=== PATIENT | male | born 1980 | race Caucasian/White ===

== ENCOUNTER 2018-07-14 19:07 | Emergency (ER) | payer MEDICAID ==
[~2018-07-14] VITALS: Ht 165.1 cm; Wt 61.0 kg
[2018-07-14] MEDS ORDERED: TETanus/Pertussis (Acell)/Diphther VAC/PF (Tdap-Adult) 0.5ml syringe IM ONE (19:40)
[2018-07-14] MEDS ORDERED: LIDOcaine 1.5% w/epinephrine 1:200,000 5ml ampul IJ ONE (19:40)
[2018-07-14] MEDS ORDERED: LIDOcaine 1% w/epiNEPHrine 1:200,000 30ml vial IJ ONE (19:50)
[2018-07-14] MEDS ORDERED: sulfamethoxazole/trimethoprim DS (800/160mg) tablet PO ONE (20:20)
[2018-07-14] MEDS ORDERED: SULF1TAB49 PO (20:21)
[2018-07-14] MEDS ORDERED: CEPH-572 PO (20:21)
[2018-07-14 20:34] VITALS: BP 138/72
== END 2018-07-14 20:37 | disposition home or self-care (01) ==
LOC: ER 19:08
DX: L02.414 Cutaneous abscess of left upper limb (principal); F19.10 Other psychoactive substance abuse, uncomplicated; F15.90 Other stimulant use, unspecified, uncomplicated; Z56.0 Unemployment, unspecified
CPT/HCPCS: 10060; 99283; J3490

== ENCOUNTER 2018-07-16 17:25 | Inpatient (IN) | payer MEDICAID ==
[~2018-07-16] VITALS: Ht 165.1 cm; Wt 68.0 kg
[~2018-07-16 17:25] MED LIST: CEPH-572 PO; SULF1TAB49 PO
[2018-07-16] MEDS ORDERED: piperacillin/tazo 3.375gm/50ml 50 ML IV ONE (18:20)
[2018-07-16 19:00] LABS: BASOPHILS # (AUTO) 0.1 X10'3 (0-0.2); BASOPHILS % (AUTO) 0.6 % (0-1); EOSINOPHILS # (AUTO) 0.3 X10'3 (0-0.9); EOSINOPHILS % (AUTO) 3.6 % (0-6); HEMATOCRIT 39.2 % (42.0-52.0); HEMOGLOBIN 13.1 g/dl (14.0-17.9); LYMPHOCYTES # (AUTO) 1.9 X10'3 (1.1-4.8); LYMPHOCYTES % (AUTO) 21.5 % (21-51); MEAN CORPUSCULAR HGB CONC 33.6 % (33.0-36.5); MEAN CORPUSCULAR VOLUME 83.5 FL (78-98); MEAN PLATELET VOLUME 7.8 FL (7.4-10.4); MONOCYTES # (AUTO) 0.9 X10'3 (0-0.9); MONOCYTES % (AUTO) 10.4 % (2-12); NEUTROPHILS # (AUTO) 5.6 X10'3 (1.8-7.7); NEUTROPHILS % (AUTO) 63.9 % (42-75); PLATELET COUNT 286 X10'3 (140-440); RED BLOOD COUNT 4.69 X10'6 (4.70-6.10); RED CELL DISTRIBUTION WIDTH 14.3 % (11.5-14.5); WHITE BLOOD COUNT 8.8 X10'3 (4.5-11.0)
[2018-07-16 19:14] LABS: ALANINE AMINOTRANSFERASE 18 U/L (12-78); ALBUMIN 3.4 G/DL (3.4-5.0); ALBUMIN/GLOBULIN RATIO 0.8 (1.1-1.5); ALKALINE PHOSPHATASE 102 IU/L (46-116); ANION GAP 5 (8-16); ASPARTATE AMINO TRANSFERASE 19 U/L (10-37); BILIRUBIN,TOTAL 0.3 MG/DL (0.1-1.0); BLOOD UREA NITROGEN 16 MG/DL (7-18); BUN/CREATININE RATIO 15.2 (5.4-32.0); CALCIUM 9.2 MG/DL (8.5-10.1); CHLORIDE 102 MMOL/L (99-107); CREATININE 1.05 MG/DL (0.60-1.10); GLUCOSE 73 MG/DL (70-104); POTASSIUM 4.9 MMOL/L (3.5-5.1); SODIUM 140 MMOL/L (135-145); TOTAL CARBON DIOXIDE 33.5 MMOL/L (24-32); TOTAL PROTEIN 7.5 G/DL (6.4-8.2); eGFR 79 ML/MIN
[2018-07-16] MEDS ORDERED: morphine 4 MG/ML inj SYRINge IV ONE (19:35)
[2018-07-16] MEDS ORDERED: magnesium hydroxide 30ml (MOM) UD suspension PO PRN (20:00)
[2018-07-16] MEDS ORDERED: mag hydrox/Alum hydrox/simeth 30ml oral suspension PO PRN (20:00)
[2018-07-16] MEDS ORDERED: acetaminophen 325mg tablet PO PRN (20:00)
[2018-07-16] MEDS ORDERED: ondansetron/PF 4mg/2ml inj IV PRN (20:00)
[2018-07-16] MEDS ORDERED: buprenorphine/naloxone 2-0.5mg sublingual tablet SL ONE (20:00)
[2018-07-16] MEDS: vancomycin/NS 1 GM ADD-VANTAGE 250 ML IV SCH (20:29)
[2018-07-16] MEDS: normal saline 1000ml 1,000 ML IV SCH (20:29)
[2018-07-16 21:50] VITALS: BP 112/65
[2018-07-17] VITALS: BP 100/54
[2018-07-17] MEDS: normal saline 1000ml 1,000 ML IV SCH ×2 (05:40→20:47)
[2018-07-17 06:08] LABS: BASOPHILS % (AUTO) 0.6 % (0-1); EOSINOPHILS # (AUTO) 0.2 X10'3 (0-0.9); EOSINOPHILS % (AUTO) 2.8 % (0-6); HEMATOCRIT 36.8 % (42.0-52.0); HEMOGLOBIN 12.3 g/dl (14.0-17.9); LYMPHOCYTES % (AUTO) 25.8 % (21-51); MEAN CORPUSCULAR HEMOGLOBIN 27.9 PG (27.0-31.0); MEAN CORPUSCULAR HGB CONC 33.4 % (33.0-36.5); MEAN CORPUSCULAR VOLUME 83.7 FL (78-98); MEAN PLATELET VOLUME 7.7 FL (7.4-10.4); MONOCYTES # (AUTO) 0.8 X10'3 (0-0.9); MONOCYTES % (AUTO) 9.8 % (2-12); NEUTROPHILS # (AUTO) 4.7 X10'3 (1.8-7.7); PLATELET COUNT 254 X10'3 (140-440); RED CELL DISTRIBUTION WIDTH 14.4 % (11.5-14.5); WHITE BLOOD COUNT 7.6 X10'3 (4.5-11.0)
[2018-07-17 06:28] LABS: ALBUMIN 2.7 G/DL (3.4-5.0); ANION GAP 5 (8-16); BLOOD UREA NITROGEN 18 MG/DL (7-18); BUN/CREATININE RATIO 19.4 (5.4-32.0); CALCIUM 8.8 MG/DL (8.5-10.1); CHLORIDE 105 MMOL/L (99-107); CREATININE 0.93 MG/DL (0.60-1.10); GLUCOSE 91 MG/DL (70-104); POTASSIUM 4.7 MMOL/L (3.5-5.1); SODIUM 141 MMOL/L (135-145); TOTAL CARBON DIOXIDE 31.2 MMOL/L (24-32); eGFR > 90 ML/MIN
[2018-07-17 06:53] VITALS: BP 102/63
[2018-07-17] MEDS: vancomycin/NS 1 GM ADD-VANTAGE 250 ML IV SCH ×2 (07:40→15:51)
[2018-07-17] MEDS: buprenorphine/naloxone 2-0.5mg sublingual tablet SL SCH ×2 (07:40→15:50)
[2018-07-17] MEDS: CefTRIAXone/D5W-Rocephin 1gm 50 ML IV SCH (08:00)
[2018-07-17] MEDS ORDERED: NO HOME MEDS (10:37)
[2018-07-17 11:00] VITALS: BP 103/56
[2018-07-17 19:30] VITALS: BP 109/66
[2018-07-18] VITALS: BP 122/76
[2018-07-18] MEDS: buprenorphine/naloxone 2-0.5mg sublingual tablet SL SCH ×4 (00:29→23:56)
[2018-07-18] MEDS: vancomycin/NS 1 GM ADD-VANTAGE 250 ML IV SCH ×4 (00:29→23:52)
[2018-07-18] MEDS: normal saline 1000ml 1,000 ML IV SCH ×4 (01:58→23:52)
[2018-07-18] MEDS ORDERED: VANCOMYCIN LEVEL IV ONE (07:30)
[2018-07-18] MEDS: CefTRIAXone/D5W-Rocephin 1gm 50 ML IV SCH (07:54)
[2018-07-18] MEDS: lactobacillus rhamnosus 10,000 MMU CELLS/CAPSULE PO SCH ×2 (07:57→19:17)
[2018-07-18 08:00] VITALS: BP 108/69
[2018-07-18 09:06] LABS: ALBUMIN 2.7 G/DL (3.4-5.0); ANION GAP 6 (8-16); BLOOD UREA NITROGEN 16 MG/DL (7-18); BUN/CREATININE RATIO 18.4 (5.4-32.0); CALCIUM 8.8 MG/DL (8.5-10.1); CHLORIDE 104 MMOL/L (99-107); CREATININE 0.87 MG/DL (0.60-1.10); GLUCOSE 115 MG/DL (70-104); POTASSIUM 4.3 MMOL/L (3.5-5.1); SODIUM 141 MMOL/L (135-145); TOTAL CARBON DIOXIDE 31.1 MMOL/L (24-32); eGFR > 90 ML/MIN
[2018-07-18 09:07] LABS: BASOPHILS % (AUTO) 0.6 % (0-1); EOSINOPHILS # (AUTO) 0.2 X10'3 (0-0.9); EOSINOPHILS % (AUTO) 3.6 % (0-6); HEMATOCRIT 37.5 % (42.0-52.0); HEMOGLOBIN 12.4 g/dl (14.0-17.9); LYMPHOCYTES % (AUTO) 36.2 % (21-51); MEAN CORPUSCULAR HEMOGLOBIN 27.9 PG (27.0-31.0); MEAN CORPUSCULAR HGB CONC 33.2 % (33.0-36.5); MEAN PLATELET VOLUME 7.8 FL (7.4-10.4); MONOCYTES # (AUTO) 0.6 X10'3 (0-0.9); MONOCYTES % (AUTO) 11.6 % (2-12); NEUTROPHILS # (AUTO) 2.7 X10'3 (1.8-7.7); PLATELET COUNT 273 X10'3 (140-440); RED BLOOD COUNT 4.46 X10'6 (4.70-6.10); RED CELL DISTRIBUTION WIDTH 14.1 % (11.5-14.5); WHITE BLOOD COUNT 5.6 X10'3 (4.5-11.0)
[2018-07-18 09:27] LABS: VANCOMYCIN,TROUGH 15.7 UG/ML (6.0-14.0)
[2018-07-18 12:15] VITALS: BP 109/68
[2018-07-18] MEDS ORDERED: iohexol 300mg/ml 100ml inj. ONE (13:57)
[2018-07-18 20:00] VITALS: BP 110/53
[2018-07-18] MEDS: nicotine 21mg patch - 24 hr TD SCH (23:46)
[2018-07-19] VITALS: BP 111/65
[2018-07-19 06:59] VITALS: BP 107/55
[2018-07-19] MEDS: nicotine 21mg patch - 24 hr TD SCH (08:00)
[2018-07-19] MEDS: CefTRIAXone/D5W-Rocephin 1gm 50 ML IV SCH (08:13)
[2018-07-19] MEDS: buprenorphine/naloxone 2-0.5mg sublingual tablet SL SCH ×2 (08:17→16:21)
[2018-07-19] MEDS: lactobacillus rhamnosus 10,000 MMU CELLS/CAPSULE PO SCH ×2 (08:17→19:58)
[2018-07-19] MEDS: vancomycin/NS 1 GM ADD-VANTAGE 250 ML IV SCH ×2 (09:29→16:21)
[2018-07-19 10:55] LABS: ANION GAP 2 (8-16); BLOOD UREA NITROGEN 17 MG/DL (7-18); BUN/CREATININE RATIO 22.4 (5.4-32.0); CALCIUM 9.5 MG/DL (8.5-10.1); CHLORIDE 102 MMOL/L (99-107); CREATININE 0.76 MG/DL (0.60-1.10); GLUCOSE 94 MG/DL (70-104); POTASSIUM 4.8 MMOL/L (3.5-5.1); SODIUM 138 MMOL/L (135-145); TOTAL CARBON DIOXIDE 33.9 MMOL/L (24-32); eGFR > 90 ML/MIN
[2018-07-19 10:57] LABS: BASOPHILS % (AUTO) 0.4 % (0-1); EOSINOPHILS # (AUTO) 0.2 X10'3 (0-0.9); EOSINOPHILS % (AUTO) 2.6 % (0-6); HEMOGLOBIN 13.1 g/dl (14.0-17.9); LYMPHOCYTES # (AUTO) 1.8 X10'3 (1.1-4.8); LYMPHOCYTES % (AUTO) 24.3 % (21-51); MEAN CORPUSCULAR HEMOGLOBIN 27.9 PG (27.0-31.0); MEAN CORPUSCULAR HGB CONC 33.5 % (33.0-36.5); MEAN CORPUSCULAR VOLUME 83.2 FL (78-98); MEAN PLATELET VOLUME 7.4 FL (7.4-10.4); MONOCYTES # (AUTO) 0.7 X10'3 (0-0.9); MONOCYTES % (AUTO) 8.9 % (2-12); NEUTROPHILS # (AUTO) 4.8 X10'3 (1.8-7.7); NEUTROPHILS % (AUTO) 63.8 % (42-75); PLATELET COUNT 324 X10'3 (140-440); RED BLOOD COUNT 4.69 X10'6 (4.70-6.10); RED CELL DISTRIBUTION WIDTH 14.3 % (11.5-14.5); WHITE BLOOD COUNT 7.4 X10'3 (4.5-11.0)
[2018-07-19 12:00] VITALS: BP 102/80
[2018-07-19] MEDS: normal saline 1000ml 1,000 ML IV SCH (14:50)
[2018-07-19 20:00] VITALS: BP 108/71
[2018-07-20] VITALS: BP 108/71
[2018-07-20] MEDS: buprenorphine/naloxone 2-0.5mg sublingual tablet SL SCH ×2 (01:16→08:25)
[2018-07-20] MEDS: normal saline 1000ml 1,000 ML IV SCH ×2 (01:17→13:58)
[2018-07-20] MEDS: vancomycin/NS 1 GM ADD-VANTAGE 250 ML IV SCH ×2 (01:17→08:24)
[2018-07-20 05:16] LABS: BASOPHILS % (AUTO) 0.7 % (0-1); EOSINOPHILS # (AUTO) 0.2 X10'3 (0-0.9); EOSINOPHILS % (AUTO) 3.7 % (0-6); HEMATOCRIT 38.9 % (42.0-52.0); HEMOGLOBIN 12.9 g/dl (14.0-17.9); LYMPHOCYTES # (AUTO) 1.9 X10'3 (1.1-4.8); LYMPHOCYTES % (AUTO) 38.7 % (21-51); MEAN CORPUSCULAR HEMOGLOBIN 27.7 PG (27.0-31.0); MEAN CORPUSCULAR HGB CONC 33.1 % (33.0-36.5); MEAN CORPUSCULAR VOLUME 83.7 FL (78-98); MEAN PLATELET VOLUME 7.7 FL (7.4-10.4); MONOCYTES # (AUTO) 0.4 X10'3 (0-0.9); MONOCYTES % (AUTO) 8.4 % (2-12); NEUTROPHILS # (AUTO) 2.4 X10'3 (1.8-7.7); NEUTROPHILS % (AUTO) 48.5 % (42-75); PLATELET COUNT 309 X10'3 (140-440); RED BLOOD COUNT 4.65 X10'6 (4.70-6.10); RED CELL DISTRIBUTION WIDTH 13.9 % (11.5-14.5)
[2018-07-20 05:25] LABS: ALBUMIN 2.9 G/DL (3.4-5.0); ANION GAP 6 (8-16); BLOOD UREA NITROGEN 18 MG/DL (7-18); BUN/CREATININE RATIO 21.4 (5.4-32.0); CHLORIDE 104 MMOL/L (99-107); CREATININE 0.84 MG/DL (0.60-1.10); GLUCOSE 88 MG/DL (70-104); POTASSIUM 4.6 MMOL/L (3.5-5.1); SODIUM 140 MMOL/L (135-145); eGFR > 90 ML/MIN
[2018-07-20 08:00] VITALS: BP 105/70
[2018-07-20] MEDS: nicotine 21mg patch - 24 hr TD SCH (08:00)
[2018-07-20] MEDS: CefTRIAXone/D5W-Rocephin 1gm 50 ML IV SCH (08:25)
[2018-07-20] MEDS: lactobacillus rhamnosus 10,000 MMU CELLS/CAPSULE PO SCH (08:25)
[2018-07-20] MEDS ORDERED: LINE600T36 CORPAK (08:54)
[2018-07-20 10:54] VITALS: BP 107/72
[2018-07-20] MEDS ORDERED: LINE600T36 PO (12:58)
== END 2018-07-20 14:00 | disposition home or self-care (01) | DRG 383 ==
LOC: ER 17:25 → ED HOLD 19:58 → SUR 3N 21:20
PROVIDERS: ADMIT Hospitalist; ATTEND Internal Medicine
PROC: BP2K1ZZ Computerized Tomography (CT Scan) of Left Forearm using Low Osmolar Contrast (ICD-10-PCS; principal; 2018-07-18)
DX: L03.114 Cellulitis of left upper limb (principal); N17.9 Acute kidney failure, unspecified; F11.10 Opioid abuse, uncomplicated; G89.4 Chronic pain syndrome; B95.62 Methicillin resistant Staphylococcus aureus infection as the cause of diseases classified elsewhere; I80.8 Phlebitis and thrombophlebitis of other sites; F15.90 Other stimulant use, unspecified, uncomplicated; L02.414 Cutaneous abscess of left upper limb; Z79.899 Other long term (current) drug therapy
CPT/HCPCS: 36415; 71045; 73090; 73201; 80048; 80053; 80202; 84145; 85025; 87040; 87070; 87077; 87186; 96365; 96375; 99285; G0378; J0696; J2270; J2543; J3370; J7030; Q9967

== ENCOUNTER 2018-09-26 15:34 | Emergency (ER) | payer MEDICAID ==
[~2018-09-26 15:34] MED LIST changes: -CEPH-572 PO; +LINE600T36 PO; +NO HOME MEDS; -SULF1TAB49 PO
--- NOTE | 2018-09-26 16:09 | NUR ---
PT NIL X3, [employer] NOTIFIED, NO FURTHER ACTION PER [employer]
[2018-09-27] MEDS ORDERED: TRAM50TA2 PO (14:13)
[2018-09-27] MEDS ORDERED: CEPH-572 PO (14:13)
[2018-09-27] MEDS ORDERED: SULF1TAB49 PO (14:13)
== END 2018-09-26 16:09 | disposition left against medical advice (07) ==
LOC: ER 15:34
DX: T14.8XXA Other injury of unspecified body region, initial encounter (principal); Z53.21 Procedure and treatment not carried out due to patient leaving prior to being seen by health care provider; W57.XXXA Bitten or stung by nonvenomous insect and other nonvenomous arthropods, initial encounter; Y93.89 Activity, other specified; Y92.89 Other specified places as the place of occurrence of the external cause; Y99.8 Other external cause status

== ENCOUNTER 2018-09-26 17:50 | Emergency (ER) | payer MEDICAID ==
--- NOTE | 2018-09-26 18:35 | NUR ---
PER PREVIOUS TRIAGE NURSE MELINA PT CHECKED IN TO BE SEEN EARLIER TODAY BUT LEFT BEFORE TRIAGE, PT CAME BACK THIS EVENING, CHECK IN BUT HAS NOT BEEN IN THE LOBBY X 3 CALL UPS. 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
--- NOTE | 2018-09-26 18:45 | NUR ---
PT REPORTEDLY LBT. CALL PLACED TO NUMBER ON FILE, RECIEVED [employer] AUTOMATED MESSAGE THAT NUMER IS NOT ACTIVE. DR CHAWLA INFORMED.
[2018-09-27] MEDS ORDERED: TRAM50TA2 PO (14:13)
[2018-09-27] MEDS ORDERED: CEPH-572 PO (14:13)
[2018-09-27] MEDS ORDERED: SULF1TAB49 PO (14:13)
== END 2018-09-26 20:23 | disposition left against medical advice (07) ==
LOC: ER 17:50
DX: T63.301A Toxic effect of unspecified spider venom, accidental (unintentional), initial encounter (principal); Z53.21 Procedure and treatment not carried out due to patient leaving prior to being seen by health care provider; Y92.89 Other specified places as the place of occurrence of the external cause

== ENCOUNTER 2018-09-27 12:52 | Emergency (ER) | payer MEDICAID ==
[~2018-09-27] VITALS: Ht 165.1 cm; Wt 63.1 kg
[2018-09-27 13:16] VITALS: BP 105/78
[2018-09-27] MEDS ORDERED: LIDOcaine 1% w/epiNEPHrine 1:200,000 30ml vial IM ONE (14:10)
[2018-09-27] MEDS ORDERED: TETanus/Pertussis (Acell)/Diphther VAC/PF (Tdap-Adult) 0.5ml syringe IM ONE (14:10)
[2018-09-27] MEDS ORDERED: CEPH-572 PO (14:13)
[2018-09-27] MEDS ORDERED: SULF1TAB49 PO (14:13)
[2018-09-27] MEDS ORDERED: TRAM50TA2 PO (14:13)
== END 2018-09-27 14:42 | disposition left against medical advice (07) ==
LOC: ER 12:53
DX: L02.31 Cutaneous abscess of buttock (principal); F15.10 Other stimulant abuse, uncomplicated; F19.90 Other psychoactive substance use, unspecified, uncomplicated; R50.9 Fever, unspecified
CPT/HCPCS: 10060; 90715; 99283; J3490

== ENCOUNTER 2018-10-24 13:20 | Emergency (ER) | payer MEDICAID ==
[~2018-10-24] VITALS: Ht 165.1 cm; Wt 70.5 kg
[2018-10-24 14:04] VITALS: BP 127/81
--- NOTE | 2018-10-24 15:50 | NUR ---
PT CALLED X 3 TO RAP, PT NOT IN LOBBY. NOTIFIED JOHANA DE LA GARZA RN
== END 2018-10-24 16:06 | disposition left against medical advice (07) ==
LOC: ER 13:21
DX: H57.89 Other specified disorders of eye and adnexa (principal); Z53.21 Procedure and treatment not carried out due to patient leaving prior to being seen by health care provider

== ENCOUNTER 2018-10-26 07:17 | Emergency (ER) | payer MEDICAID ==
[~2018-10-26] VITALS: Ht 165.1 cm; Wt 70.5 kg
[2018-10-26 07:23] VITALS: BP 110/72
== END 2018-10-26 07:53 | disposition home or self-care (01) ==
LOC: ER 07:18
DX: T15.92XA Foreign body on external eye, part unspecified, left eye, initial encounter (principal); T15.91XA Foreign body on external eye, part unspecified, right eye, initial encounter; F15.90 Other stimulant use, unspecified, uncomplicated; Z56.0 Unemployment, unspecified; Y92.89 Other specified places as the place of occurrence of the external cause
CPT/HCPCS: 99281

== ENCOUNTER 2018-10-28 11:09 | Emergency (ER) | payer MEDICAID ==
[~2018-10-28] VITALS: Ht 165.1 cm; Wt 70.0 kg
[2018-10-28 11:24] VITALS: BP 111/72
[2018-10-28] MEDS ORDERED: diphenhydrAMINE 25mg capsule PO ONE (12:25)
[2018-10-28] MEDS ORDERED: Ivermectin 3mg tablet PO ONE (12:25)
[2018-10-28] MEDS ORDERED: dexamethasone 4mg tablet PO ONE (12:25)
[2018-10-28] MEDS ORDERED: IVER3TAB2 PO (12:33)
[2018-10-28] MEDS ORDERED: PRED20TA PO (12:33)
[2018-10-30] MEDS ORDERED: ERYT1OIN6 RIGHTEYE (20:58)
== END 2018-10-28 12:55 | disposition home or self-care (01) ==
LOC: ER 11:10
DX: R21 Rash and other nonspecific skin eruption (principal); F15.90 Other stimulant use, unspecified, uncomplicated; Z59.0 Homelessness; Z56.0 Unemployment, unspecified; Z79.899 Other long term (current) drug therapy
CPT/HCPCS: 99284; J8540; Q0163

== ENCOUNTER 2018-11-17 00:15 | Inpatient (IN) | payer MEDICAID | END 2018-11-19 04:20 | disposition left against medical advice (07) | LOC: ER 00:15 → ED HOLD 08:31 → ORTHO 4S 20:30 ==

== ENCOUNTER 2018-12-30 09:15 | Emergency (ER) | payer MEDICAID ==
[~2018-12-30] VITALS: Ht 165.1 cm; Wt 59.0 kg
[~2018-12-30 09:15] MED LIST changes: -LINE600T36 PO
[2018-12-30 09:37] VITALS: BP 117/83
[2018-12-30] MEDS ORDERED: mupirocin 2% ointment 22GM TP STA (11:44)
== END 2018-12-30 11:58 | disposition home or self-care (01) ==
LOC: ER 09:15
DX: S96.812A Strain of other specified muscles and tendons at ankle and foot level, left foot, initial encounter (principal); F15.90 Other stimulant use, unspecified, uncomplicated; F11.90 Opioid use, unspecified, uncomplicated; Z59.0 Homelessness; Z56.0 Unemployment, unspecified; X58.XXXA Exposure to other specified factors, initial encounter; Y93.89 Activity, other specified; Y92.89 Other specified places as the place of occurrence of the external cause; Y99.8 Other external cause status
CPT/HCPCS: 73610; 73630; 99283; 99284

== ENCOUNTER 2019-06-07 13:07 | Emergency (ER) | payer MEDICAID ==
[~2019-06-07] VITALS: Ht 167.6 cm; Wt 67.7 kg
[2019-06-07] MEDS ORDERED: ERYT1OIN6 LEFTEYE (13:32)
[2019-06-07] MEDS ORDERED: MUPI22OI30 TOP (13:32)
--- NOTE | 2019-06-07 13:34 | NUR ---
Pt instructed on precautions to limit the spread of the inflammation and proper handwashing techniques. Pt verbalized understanding.
[2019-06-07 13:57] VITALS: BP 139/78
== END 2019-06-07 13:56 | disposition home or self-care (01) ==
LOC: ER 13:07
DX: H00.14 Chalazion left upper eyelid (principal); F15.90 Other stimulant use, unspecified, uncomplicated; F11.90 Opioid use, unspecified, uncomplicated; Z59.0 Homelessness; Z56.0 Unemployment, unspecified
CPT/HCPCS: 99283

== ENCOUNTER 2019-10-23 18:31 | Emergency (ER) | payer MEDICAID ==
[~2019-10-23] VITALS: Ht 152.4 cm; Wt 67.7 kg
[2019-10-23] MEDS ORDERED: gentamicin inj 350 MG in normal saline 100ml IV soln 100 ML IV STA (20:34)
[2019-10-23] MEDS ORDERED: ketorolac trometh. 30mg/ml inj. IV ONE (20:35)
[2019-10-23] MEDS ORDERED: normal saline 1000ml 1,000 ML IV ONE (20:35)
[2019-10-23 21:20] LABS: BASOPHILS % (AUTO) 0.3 % (0-1); EOSINOPHILS # (AUTO) 0.1 X10'3 (0-0.9); EOSINOPHILS % (AUTO) 1.1 % (0-6); HEMOGLOBIN 13.1 g/dl (14.0-17.9); LYMPHOCYTES # (AUTO) 2.6 X10'3 (1.1-4.8); LYMPHOCYTES % (AUTO) 19.7 % (21-51); MEAN CORPUSCULAR HEMOGLOBIN 27.5 PG (27.0-31.0); MEAN CORPUSCULAR HGB CONC 34.3 g/dL (33.0-36.5); MEAN CORPUSCULAR VOLUME 80.2 FL (78-98); MEAN PLATELET VOLUME 7.7 FL (7.4-10.4); MONOCYTES # (AUTO) 1.1 X10'3 (0-0.9); MONOCYTES % (AUTO) 8.8 % (2-12); NEUTROPHILS # (AUTO) 9.2 X10'3 (1.8-7.7); NEUTROPHILS % (AUTO) 70.1 % (42-75); PLATELET COUNT 320 X10'3 (140-440); RED BLOOD COUNT 4.74 X10'6 (4.70-6.10); RED CELL DISTRIBUTION WIDTH 14.7 % (11.5-14.5)
[2019-10-23 21:34] LABS: ALANINE AMINOTRANSFERASE 17 U/L (12-78); ALBUMIN 3.5 G/DL (3.4-5.0); ALBUMIN/GLOBULIN RATIO 0.7 (1.1-1.5); ALKALINE PHOSPHATASE 101 IU/L (46-116); ANION GAP 2 (8-16); ASPARTATE AMINO TRANSFERASE 19 U/L (10-37); BILIRUBIN,TOTAL 0.4 MG/DL (0.1-1.0); BLOOD UREA NITROGEN 12 MG/DL (7-18); BUN/CREATININE RATIO 13.6 (5.4-32.0); CALCIUM 8.9 MG/DL (8.5-10.1); CHLORIDE 99 MMOL/L (99-107); CREATININE 0.88 MG/DL (0.60-1.10); GLUCOSE 95 MG/DL (70-104); SODIUM 136 MMOL/L (135-145); TOTAL CARBON DIOXIDE 35.3 MMOL/L (24-32); TOTAL PROTEIN 8.4 G/DL (6.4-8.2); eGFR > 90 ML/MIN
[2019-10-23] MEDS ORDERED: CEPH500C5 PO (21:57)
[2019-10-23] MEDS ORDERED: BACDS PO (21:57)
[2019-10-23 23:14] VITALS: BP 107/68
[2019-10-24] MEDS ORDERED: ampicillin/sulbac 3gm/NS 100ml 100 ML IV ONE (02:00)
== END 2019-10-23 23:16 | disposition home or self-care (01) ==
LOC: ER 18:32
DX: L03.115 Cellulitis of right lower limb (principal)
CPT/HCPCS: 36415; 73590; 80053; 85025; 96365; 96367; 96375; 99284; J1580; J1885; J7030; J0295

== ENCOUNTER 2019-11-21 20:32 | Emergency (ER) | payer MEDICAID ==
[~2019-11-21] VITALS: Ht 165.1 cm; Wt 68.0 kg
[~2019-11-21 20:32] MED LIST changes: +BACDS PO; +CEPH500C5 PO
[2019-11-21] MEDS ORDERED: LIDOcaine 1% W/epiNEPHrine 1:200,000 10ml vial IJ ONE (21:15)
[2019-11-21] MEDS ORDERED: cephalexin 250mg capsule PO ONE (21:55)
[2019-11-21] MEDS ORDERED: mupirocin 2% ointment 22GM TP STA (21:55)
[2019-11-21] MEDS ORDERED: sulfamethoxazole/trimethoprim DS (800/160mg) tablet PO ONE (21:55)
[2019-11-21] MEDS ORDERED: SULF1TAB49 PO (22:04)
[2019-11-21] MEDS ORDERED: NALO4SPR NS (22:04)
[2019-11-21] MEDS ORDERED: CEPH500C5 PO (22:04)
[2019-11-21 22:14] VITALS: BP 122/86
== END 2019-11-21 22:10 | disposition home or self-care (01) ==
LOC: ER 20:33
DX: L02.415 Cutaneous abscess of right lower limb (principal); F11.10 Opioid abuse, uncomplicated; F15.90 Other stimulant use, unspecified, uncomplicated; Z59.0 Homelessness; Z56.0 Unemployment, unspecified
CPT/HCPCS: 10060; 99284

== ENCOUNTER 2023-06-06 20:00 | Emergency (ER) | payer MEDICAID ==
[~2023-06-06] VITALS: Ht 167.6 cm; Wt 68.2 kg
[~2023-06-06 20:00] MED LIST changes: -BACDS PO; -CEPH500C5 PO; +NALO4SPR NS
[2023-06-06 20:13] VITALS: BP 133/90; PULSE 100; RESP 14; TEMP 98.3; O2SAT 98
[2023-06-06 21:09] LABS: BASOPHILS % (AUTO) 0.2 % (0-1); EOSINOPHILS % (AUTO) 0.1 % (0-6); HEMATOCRIT 37.6 % (42.0-52.0); HEMOGLOBIN 12.6 g/dl (14.0-17.9); LYMPHOCYTES # (AUTO) 1.4 X10'3 (1.1-4.8); LYMPHOCYTES % (AUTO) 19.4 % (21-51); MEAN CORPUSCULAR HEMOGLOBIN 28.2 PG (27.0-31.0); MEAN CORPUSCULAR HGB CONC 33.5 g/dL (33.0-36.5); MEAN CORPUSCULAR VOLUME 84.2 FL (78-98); MEAN PLATELET VOLUME 7.4 FL (7.4-10.4); MONOCYTES # (AUTO) 0.7 X10'3 (0-0.9); MONOCYTES % (AUTO) 10.4 % (2-12); NEUTROPHILS # (AUTO) 4.9 X10'3 (1.8-7.7); NEUTROPHILS % (AUTO) 69.9 % (42-75); PLATELET COUNT 221 X10'3 (140-440); RED BLOOD COUNT 4.46 X10'6 (4.70-6.10); RED CELL DISTRIBUTION WIDTH 14.1 % (11.5-14.5)
[2023-06-06 21:19] LABS: ALANINE AMINOTRANSFERASE 70 U/L (12-78); ALBUMIN 3.6 G/DL (3.4-5.0); ALBUMIN/GLOBULIN RATIO 0.9 (1.1-1.5); ALKALINE PHOSPHATASE 96 IU/L (46-116); ANION GAP 1 (8-16); ASPARTATE AMINO TRANSFERASE 54 U/L (10-37); BILIRUBIN,TOTAL 0.6 MG/DL (0.1-1.0); BLOOD UREA NITROGEN 8 MG/DL (7-18); BUN/CREATININE RATIO 9.9 (10.0-20.0); CALCIUM 9.3 MG/DL (8.5-10.1); CHLORIDE 104 MMOL/L (99-107); CREATININE 0.81 MG/DL (0.60-1.10); GLUCOSE 98 MG/DL (70-104); POTASSIUM 3.3 MMOL/L (3.5-5.1); SODIUM 140 MMOL/L (135-145); TOTAL CARBON DIOXIDE 35.4 MMOL/L (24-32); TOTAL PROTEIN 7.7 G/DL (6.4-8.2); eCRCL 107 ML/MIN; eGFR > 90 ML/MIN
[2023-06-06] MEDS ORDERED: cephalexin 250mg capsule PO ONE (23:35)
[2023-06-06] MEDS ORDERED: CEPH-585 PO (23:35)
== END 2023-06-06 23:43 | disposition home or self-care (01) ==
LOC: ER 20:00
DX: L02.521 Furuncle right hand (principal); Z79.899 Other long term (current) drug therapy
CPT/HCPCS: 36415; 80053; 85025; 99283

== ENCOUNTER 2023-12-22 19:26 | Emergency (ER) | payer MEDICAID ==
[~2023-12-22] VITALS: Ht 167.6 cm; Wt 72.7 kg
[~2023-12-22 19:26] MED LIST changes: +CEPH-585 PO
[2023-12-22 19:40] VITALS: BP 124/77; PULSE 78; RESP 17; TEMP 98; O2SAT 99
== END 2023-12-22 20:15 | disposition home or self-care (01) ==
LOC: ER 19:26
DX: Z13.6 Encounter for screening for cardiovascular disorders (principal); F15.90 Other stimulant use, unspecified, uncomplicated; Z79.2 Long term (current) use of antibiotics; Z79.899 Other long term (current) drug therapy
CPT/HCPCS: 93005; 99283